=== PATIENT | male | born 1955 | race Caucasian/White ===

== ENCOUNTER 2016-08-29 20:52 | Emergency (ER) | payer MEDICAID ==
[~2016-08-29] VITALS: Ht 180.3 cm; Wt 101.6 kg
[2016-08-29 23:25] VITALS: BP 135/90
== END 2016-08-29 23:25 | disposition home or self-care (01) ==
LOC: ED 20:52
DX: L03.312 Cellulitis of back [any part except buttock and flank] (principal); I10 Essential (primary) hypertension
CPT/HCPCS: J0696; J2001

== ENCOUNTER 2016-09-02 13:47 | Emergency (ER) | payer MEDICAID ==
[2016-09-02 15:11] VITALS: BP 124/86
== END 2016-09-02 15:11 | disposition home or self-care (01) ==
LOC: ED 13:47
DX: L05.01 Pilonidal cyst with abscess (principal); E78.00 Pure hypercholesterolemia, unspecified; Z91.010 Allergy to peanuts
CPT/HCPCS: 90715; J2001

== ENCOUNTER 2018-04-12 10:59 | Emergency (ER) | payer MEDICAID ==
[~2018-04-12] VITALS: Ht 182.9 cm; Wt 94.8 kg
[2018-04-12 11:02] VITALS: Ht 182.9 cm; Wt 94.8 kg
[2018-04-12 11:58] VITALS: BP 130/92
== END 2018-04-12 11:58 | disposition home or self-care (01) ==
LOC: ED 10:59
DX: L25.2 Unspecified contact dermatitis due to dyes (principal); I10 Essential (primary) hypertension; E78.00 Pure hypercholesterolemia, unspecified; F41.9 Anxiety disorder, unspecified; E78.5 Hyperlipidemia, unspecified; G89.29 Other chronic pain; Z98.890 Other specified postprocedural states; Z91.010 Allergy to peanuts

== ENCOUNTER 2018-04-23 11:23 | Emergency (ER) | payer MEDICAID ==
[~2018-04-23] VITALS: Ht 182.9 cm; Wt 95.3 kg
[2018-04-23 11:37] VITALS: BP 126/74; Ht 182.9 cm; Wt 95.3 kg
== END 2018-04-23 14:44 | disposition home or self-care (01) ==
LOC: ED 11:23
DX: L25.2 Unspecified contact dermatitis due to dyes (principal); I10 Essential (primary) hypertension; E78.5 Hyperlipidemia, unspecified; G89.29 Other chronic pain; F41.9 Anxiety disorder, unspecified; E78.00 Pure hypercholesterolemia, unspecified; Z98.890 Other specified postprocedural states; Z91.010 Allergy to peanuts; Z91.048 Other nonmedicinal substance allergy status
CPT/HCPCS: J2930